=== PATIENT | male | born 1940 | race Native Hawaiian/Other Pacific Islander ===

== ENCOUNTER 2018-09-06 18:56 | Outpatient (CLI) | payer OTHER | END 2018-09-06 18:59 | disposition short-term general hospital (02) | LOC: AMB 18:56 | DX: F10.10 Alcohol abuse, uncomplicated (principal) | CPT/HCPCS: A0425; A0429 ==

== ENCOUNTER 2018-09-06 19:13 | Emergency (ER) | payer OTHER ==
[~2018-09-06] VITALS: Ht 165.1 cm; Wt 68.0 kg
[2018-09-06 19:56] LABS: PLATELET COUNT 75 K/uL (142-355)
[2018-09-06 20:03] LABS: POTASSIUM 3.7 mmol/L (3.6-5.2)
[2018-09-07 01:29] VITALS: BP 128/76; TEMP 98.3
== END 2018-09-07 01:32 | disposition home or self-care (01) ==
LOC: ED 19:13
PROVIDERS: Emergency Medicine
DX: F10.129 Alcohol abuse with intoxication, unspecified (principal); I48.91 Unspecified atrial fibrillation
CPT/HCPCS: 36415; 80053; 80307; 80320; 81000; 85027; 93005; 96361; 96365; 96375; 99284; J2405; J3411; J3475; J3490

== ENCOUNTER 2019-04-24 11:51 | Outpatient (CLI) | payer OTHER | END 2019-04-24 11:52 | disposition short-term general hospital (02) | LOC: AMB 11:51 | DX: I48.91 Unspecified atrial fibrillation (principal); R41.82 Altered mental status, unspecified | CPT/HCPCS: A0425; A0429 ==

== ENCOUNTER 2019-04-24 11:55 | Emergency (ER) | payer OTHER ==
[~2019-04-24] VITALS: Ht 165.1 cm; Wt 68.0 kg
[2019-04-24 12:15] VITALS: TEMP 97.5
[2019-04-24 12:57] LABS: PLATELET COUNT 161 K/uL (142-355)
[2019-04-24 12:59] LABS: POTASSIUM 4.7 mmol/L (3.6-5.2); SODIUM 142 mmol/L (136-145)
[2019-04-24 15:50] VITALS: BP 110/69
== END 2019-04-24 15:50 | disposition home or self-care (01) ==
LOC: ED 11:55
PROVIDERS: Emergency Medicine
DX: F10.129 Alcohol abuse with intoxication, unspecified (principal); K29.20 Alcoholic gastritis without bleeding; R10.84 Generalized abdominal pain; I48.91 Unspecified atrial fibrillation
CPT/HCPCS: 80053; 80320; 82150; 83690; 83735; 84484; 85027; 93005; 96360; 96375; 99284; J3490

== ENCOUNTER 2019-12-26 13:25 | Emergency (ER) | payer OTHER ==
[~2019-12-26] VITALS: Ht 165.1 cm; Wt 68.0 kg
[2019-12-26 13:25] VITALS: TEMP 97.5
[2019-12-26 15:00] VITALS: BP 111/69
== END 2019-12-26 15:00 | disposition home or self-care (01) ==
LOC: ED 13:28
DX: S39.012A Strain of muscle, fascia and tendon of lower back, initial encounter (principal); W18.39XA Other fall on same level, initial encounter; X50.9XXA Other and unspecified overexertion or strenuous movements or postures, initial encounter; Y92.89 Other specified places as the place of occurrence of the external cause
CPT/HCPCS: 99283; J1885

== ENCOUNTER 2020-02-05 12:54 | Outpatient (CLI) | payer OTHER | END 2020-02-05 19:12 | disposition home or self-care (01) | LOC: RESP 12:54 | DX: I48.20 Chronic atrial fibrillation, unspecified (principal) | CPT/HCPCS: 93005 ==

== ENCOUNTER 2020-02-05 13:38 | Outpatient (CLI) | payer OTHER | END 2020-02-05 19:13 | disposition home or self-care (01) | LOC: LAB 13:38 | DX: I48.20 Chronic atrial fibrillation, unspecified (principal); R06.02 Shortness of breath | CPT/HCPCS: 83880; 84484 ==

== ENCOUNTER 2020-04-13 15:45 | Emergency (ER) | payer OTHER ==
[~2020-04-13] VITALS: Ht 165.1 cm; Wt 68.0 kg
[2020-04-13 15:45] VITALS: TEMP 98.7
[2020-04-13 16:21] LABS: PLATELET COUNT 160 K/uL (142-355)
[2020-04-13 16:38] LABS: PARTIAL THROMBOPLASTIN TIME 24.9 SECONDS (24.5-33.6)
[2020-04-13 17:36] VITALS: BP 121/69
== END 2020-04-13 18:00 | disposition home or self-care (01) ==
LOC: ED 16:02
PROVIDERS: Hospitalist
DX: S80.12XA Contusion of left lower leg, initial encounter (principal); F10.129 Alcohol abuse with intoxication, unspecified; R41.0 Disorientation, unspecified; W18.39XA Other fall on same level, initial encounter; Y92.89 Other specified places as the place of occurrence of the external cause
CPT/HCPCS: 36415; 80053; 80320; 85027; 85610; 85730; 96360; 96375; 99284; J1885

== ENCOUNTER 2020-07-14 13:36 | Emergency (ER) | payer OTHER ==
[~2020-07-14] VITALS: Ht 165.1 cm; Wt 68.0 kg
[2020-07-14 13:36] VITALS: TEMP 98.4
[2020-07-14 14:29] LABS: PLATELET COUNT 148 K/uL (142-355)
[2020-07-14 14:38] LABS: POTASSIUM 3.9 mmol/L (3.6-5.2)
[2020-07-14 14:59] LABS: PARTIAL THROMBOPLASTIN TIME 26.7 SECONDS (24.5-33.6)
[2020-07-14 17:03] VITALS: BP 118/82
== END 2020-07-14 17:12 | disposition home or self-care (01) ==
LOC: ED 13:46
PROVIDERS: Hospitalist
DX: M19.09 Primary osteoarthritis, other specified site (principal); I48.20 Chronic atrial fibrillation, unspecified; F10.129 Alcohol abuse with intoxication, unspecified; Y90.8 Blood alcohol level of 240 mg/100 ml or more
CPT/HCPCS: 36415; 80048; 80320; 85027; 85610; 85730; 93005; 96361; 96365; 96375; 99284; J1170; J1885; J2930; J3490

== ENCOUNTER 2020-09-09 11:25 | Emergency (ER) | payer OTHER ==
[~2020-09-09] VITALS: Ht 165.1 cm; Wt 68.0 kg
[2020-09-09 11:41] VITALS: BP 135/79; TEMP 98.9
[2020-09-09 13:02] LABS: PLATELET COUNT 145 K/uL (142-355)
[2020-09-09 13:59] LABS: POTASSIUM 4.1 mmol/L (3.6-5.2)
== END 2020-09-09 16:30 | disposition home or self-care (01) ==
LOC: ED 11:25
PROVIDERS: Family Medicine
DX: F10.10 Alcohol abuse, uncomplicated (principal); Y90.8 Blood alcohol level of 240 mg/100 ml or more; M79.605 Pain in left leg; Z03.818 Encounter for observation for suspected exposure to other biological agents ruled out
CPT/HCPCS: 36415; 80053; 80307; 80320; 80329; 85027; 87635; 93005; 96360; 99284; U0003

== ENCOUNTER 2020-10-08 22:41 | Emergency (ER) | payer OTHER ==
[~2020-10-08] VITALS: Ht 165.1 cm; Wt 68.0 kg
[2020-10-09 00:40] VITALS: BP 131/92; TEMP 97.7
== END 2020-10-09 00:40 | disposition home or self-care (01) ==
LOC: ED 22:41
DX: M54.5 Low back pain (principal); F10.129 Alcohol abuse with intoxication, unspecified; W18.39XA Other fall on same level, initial encounter; Y92.098 Other place in other non-institutional residence as the place of occurrence of the external cause
CPT/HCPCS: 99282

== ENCOUNTER 2020-10-09 14:45 | Emergency (ER) | payer OTHER ==
[~2020-10-09] VITALS: Ht 165.1 cm; Wt 68.0 kg
[2020-10-09 15:28] LABS: PLATELET COUNT 174 K/uL (142-355)
[2020-10-09 15:42] LABS: POTASSIUM 4.1 mmol/L (3.6-5.2)
[2020-10-09 22:05] VITALS: BP 130/76; TEMP 98.5
== END 2020-10-09 22:05 | disposition home or self-care (01) ==
LOC: ED 14:45
PROVIDERS: Hospitalist
DX: F10.229 Alcohol dependence with intoxication, unspecified (principal); Y90.8 Blood alcohol level of 240 mg/100 ml or more; Z03.818 Encounter for observation for suspected exposure to other biological agents ruled out
CPT/HCPCS: 80053; 80320; 80329; 82550; 84484; 85027; 87635; 93005; 96365; 96375; 96376; 99285; J2405; J3411; J3475; J3490; U0003

== ENCOUNTER 2020-10-16 18:38 | Emergency (ER) | payer OTHER ==
[~2020-10-16] VITALS: Ht 165.1 cm; Wt 71.2 kg
[2020-10-16 21:39] LABS: PLATELET COUNT 98 K/uL (142-355)
[2020-10-16 22:30] VITALS: BP 119/81; TEMP 98.6
== END 2020-10-16 22:30 | disposition home or self-care (01) ==
LOC: ED 18:38
PROVIDERS: Emergency Medicine
DX: F10.129 Alcohol abuse with intoxication, unspecified (principal)
CPT/HCPCS: 36415; 80053; 82150; 83690; 85027; 96365; 99283; 99284; J0696

== ENCOUNTER 2020-10-24 05:43 | Inpatient (IN) | payer OTHER ==
[~2020-10-24] VITALS: Ht 165.1 cm; Wt 73.7 kg
[2020-10-24] VITALS (24 sets, daily range): BP systolic 74–181; BP diastolic 35–156; TEMP 96.1–98.2
[2020-10-24 07:25] LABS: PLATELET COUNT 134 K/uL (142-355)
[2020-10-24 07:34] LABS: POTASSIUM 3.9 mmol/L (3.6-5.2); SODIUM 143 mmol/L (136-145)
[2020-10-24 07:38] LABS: PARTIAL THROMBOPLASTIN TIME 23.4 SECONDS (24.5-33.6)
[2020-10-24] MEDS ORDERED: CHLO25CA11 PO (13:50)
[2020-10-24] MEDS ORDERED: OLOPATADINE HYD0.2 % OPTH (13:50)
[2020-10-24] MEDS ORDERED: ASPIRIN REGULA325 MG PO (13:51)
[2020-10-24] MEDS ORDERED: KP FOLIC ACID1 MG PO (13:51)
[2020-10-24] MEDS ORDERED: FLONASE AL50 MCG/ACT NAS (13:52)
[2020-10-24] MEDS ORDERED: METO50TA63 PO (13:52)
[2020-10-24] MEDS ORDERED: FURO20TA67 PO (13:53)
[2020-10-24] MEDS ORDERED: DIGOX125 MCG PO (13:53)
[2020-10-24] MEDS ORDERED: LINZESS72 MCG PO (13:54)
[2020-10-24] MEDS ORDERED: XARELTO20 MG PO (13:56)
[2020-10-24] MEDS ORDERED: POTASSIUM CHLO10 MEQ PO (13:57)
[2020-10-25] VITALS: BP 115/74; TEMP 97.8
[2020-10-25 04:00] VITALS: BP 106/65; TEMP 97.9
[2020-10-25 04:59] LABS: PLATELET COUNT 105 K/uL (142-355)
[2020-10-25 05:11] LABS: POTASSIUM 4.2 mmol/L (3.6-5.2)
[2020-10-25 08:00] VITALS: BP 113/72; TEMP 98.4
[2020-10-25 13:29] VITALS: BP 102/69; TEMP 97.5
[2020-10-25 16:00] VITALS: BP 101/65; TEMP 97.3
[2020-10-25 20:00] VITALS: BP 107/66; TEMP 97.6
[2020-10-26] VITALS: BP 114/48; TEMP 97.5
[2020-10-26 04:00] VITALS: BP 117/78; TEMP 97.8
[2020-10-26 07:07] LABS: POTASSIUM 4.7 mmol/L (3.6-5.2)
[2020-10-26 07:45] LABS: PLATELET COUNT 109 K/uL (142-355)
[2020-10-26 08:00] VITALS: BP 113/83; TEMP 97.9
[2020-10-26 12:00] VITALS: BP 112/87; TEMP 98.1
[2020-10-26 16:00] VITALS: BP 104/60; TEMP 96.4
[2020-10-26 20:00] VITALS: BP 120/75; TEMP 97.8
[2020-10-27] VITALS (7 sets, daily range): BP systolic 94–126; BP diastolic 53–85; TEMP 97.5–98.3
[2020-10-27 05:44] LABS: PLATELET COUNT 97 K/uL (142-355)
[2020-10-27 05:48] LABS: POTASSIUM 4.4 mmol/L (3.6-5.2)
[2020-10-28 03:55] VITALS: BP 127/73; TEMP 97.8
[2020-10-28 06:07] LABS: PLATELET COUNT 84 K/uL (142-355)
[2020-10-28 08:00] VITALS: BP 115/78; TEMP 96.6
[2020-10-28 12:00] VITALS: BP 105/65; TEMP 98.3
[2020-10-28 16:00] VITALS: BP 102/66; TEMP 97.9
[2020-10-28 19:44] VITALS: BP 110/77; TEMP 97.6
[2020-10-28 23:37] VITALS: BP 102/61; TEMP 97.7
[2020-10-29 04:12] VITALS: BP 121/66; TEMP 97.8
[2020-10-29 05:42] LABS: PLATELET COUNT 94 K/uL (142-355)
[2020-10-29 08:00] VITALS: BP 122/83; TEMP 98.2
[2020-10-29 12:00] VITALS: BP 114/72; TEMP 96.3
[2020-10-29 16:00] VITALS: BP 116/71; TEMP 96.9
[2020-10-29 20:00] VITALS: BP 115/75; TEMP 97.5
[2020-10-30] VITALS: BP 119/70; TEMP 97.6
[2020-10-30 04:00] VITALS: BP 130/85; TEMP 97.9
[2020-10-30 04:49] LABS: PLATELET COUNT 96 K/uL (142-355)
[2020-10-30 05:30] LABS: POTASSIUM 3.7 mmol/L (3.6-5.2)
[2020-10-30 07:51] VITALS: BP 139/82; TEMP 97.8
[2020-10-30 11:47] VITALS: BP 124/81; TEMP 97.4
[2020-10-30 15:58] VITALS: BP 112/68; TEMP 98.1
[2020-10-30 20:00] VITALS: BP 137/81; TEMP 97.5
[2020-10-31] VITALS (7 sets, daily range): BP systolic 112–145; BP diastolic 50–90; TEMP 97.4–98.6
[2020-11-01 03:52] VITALS: BP 145/95; TEMP 97.7
[2020-11-01 08:00] VITALS: BP 134/73; TEMP 97.4
[2020-11-01 12:07] VITALS: BP 129/74; TEMP 97.9
[2020-11-01 16:00] VITALS: BP 129/67; TEMP 97.5
[2020-11-01 19:56] VITALS: BP 104/75; TEMP 97.2
[2020-11-01 23:56] VITALS: BP 118/74; TEMP 97.3
[2020-11-02 04:05] VITALS: BP 113/69; TEMP 97.1
[2020-11-02 08:00] VITALS: BP 123/82; TEMP 97.7
[2020-11-02 08:43] LABS: POTASSIUM 4.2 mmol/L (3.6-5.2)
[2020-11-02 08:47] LABS: PLATELET COUNT 89 K/uL (142-355)
[2020-11-02 12:00] VITALS: BP 120/76; TEMP 97.5
[2020-11-02 16:00] VITALS: BP 104/56; TEMP 97.3
[2020-11-02 20:00] VITALS: BP 127/73; TEMP 97.9
[2020-11-03] VITALS: BP 106/69; TEMP 98
[2020-11-03 04:10] VITALS: BP 103/55; TEMP 98.2
[2020-11-03 08:00] VITALS: BP 118/74; TEMP 97.7
[2020-11-03 12:00] VITALS: BP 102/62; TEMP 97.8
== END 2020-11-03 21:15 | DRG 434 ==
LOC: ED 05:43 → MED/SURG 10:15 → UNDODEPER 10-27 12:45 → MED/SURG 11-03 21:15
PROVIDERS: Hospitalist; Internal Medicine Endocrinology, Diabetes & Metabolism; ADMIT Family Medicine; ATTEND Family Medicine
DX: K70.40 Alcoholic hepatic failure without coma (principal); I16.0 Hypertensive urgency; F10.229 Alcohol dependence with intoxication, unspecified; Y90.8 Blood alcohol level of 240 mg/100 ml or more; I48.91 Unspecified atrial fibrillation; R55 Syncope and collapse; I95.89 Other hypotension; Z03.818 Encounter for observation for suspected exposure to other biological agents ruled out; F17.210 Nicotine dependence, cigarettes, uncomplicated; F03.90 Unspecified dementia, unspecified severity, without behavioral disturbance, psychotic disturbance, mood disturbance, and anxiety; R53.81 Other malaise; D64.89 Other specified anemias; I50.9 Heart failure, unspecified; E86.0 Dehydration
CPT/HCPCS: 36415; 80048; 80053; 80307; 80320; 81000; 82550; 83880; 84484; 85027; 85610; 85730; 87635; 93005; 94640; 94664; 94760; 96360; 96365; 96375; 99284; J0360; J1650; J1885; J1940; J2060; J2270; J2405; J3411; J3475; J3490; U0003

== ENCOUNTER 2022-03-26 15:01 | Emergency (ER) | payer OTHER ==
[~2022-03-26] VITALS: Ht 172.7 cm; Wt 76.2 kg
[2022-03-26 15:01] VITALS: BP 124/86; TEMP 98.3
[~2022-03-26 15:01] MED LIST: ACET-206 PO; ALPR0.2566 PO; ALUMSUS6 PO; APIX1TAB PO; ASPIRIN REGULA325 MG PO; B-1100 MG PO; BOOST PLUS PO; BUDE1AER5 INH; CHLO25CA11 PO; CHOL100034 PO; CITALOPRAM HYDR10 MG PO; D-10001000 UNIT PO; DIGOX125 MCG PO; ESCI10TA PO; FLONASE AL50 MCG/ACT NAS; FLUTMIS6 INH; FOLI1TAB26 PO; FURO20TA67 PO; HYDR10TA47 PO; HYDROCODONE BIT1 TAB PO; IPRATROPIUM/ INH; KP FOLIC ACID1 MG PO; LINZESS72 MCG PO; LORA10TA3 PO; METO-837 PO; METO50TA63 PO; OLOP0.1S OPTH; OLOPATADINE HYD0.2 % OPTH; POTA10CA3 PO; POTASSIUM CHLO10 MEQ PO; SPIRIVA HANDIH18 MCG INH; THIA100T8 PO; TIOTCAP2 INH; TYLENOL325 MG PO; XARELTO20 MG PO; [UNRECOGNIZED DRUG - REMARK] PO
[2022-03-26 15:35] LABS: PLATELET COUNT 163 K/uL (142-355)
[2022-03-26 15:43] LABS: POTASSIUM 4.1 mmol/L (3.6-5.2)
== END 2022-03-26 17:13 | disposition still patient (30) ==
LOC: ED 15:01
PROVIDERS: Hospitalist
DX: F25.8 Other schizoaffective disorders (principal); R46.89 Other symptoms and signs involving appearance and behavior; Z11.52 Encounter for screening for COVID-19; Z04.6 Encounter for general psychiatric examination, requested by authority
CPT/HCPCS: 80053; 85027; 87635; 93005; 99283; U0003